=== PATIENT | female | born 1985 | race Caucasian/White ===

== ENCOUNTER 2016-09-07 18:34 | Emergency (ER) | payer OTHER ==
[~2016-09-07] VITALS: Ht 162.6 cm; Wt 54.0 kg
[2016-09-07] MEDS ORDERED: METH5TAB6 PO (18:44)
--- NOTE | 2016-09-07 19:02 | NUR ---
SBAR REPORT GIVEN TO ROYAL GUADARRAMA.
[2016-09-07 19:19] LABS: *BILIRUBIN,URIN NEGATIVE (NEGATIVE); *BLOOD, URINE NEGATIVE (NEGATIVE); *CLARITY,URINE CLEAR (CLEAR); *COLOR,URINE YELLOW (YELLOW); *KETONES,URINE TRACE (NEGATIVE); *PROTEIN,URINE NEGATIVE (NEGATIVE); LEUKOCYTE ESTERASE ,URINE 1+ (NEGATIVE); NITRITE, URINE NEGATIVE (NEGATIVE); UGLUCOSE NEGATIVE (NEGATIVE)
[2016-09-07 19:26] LABS: SQUAMOUS EPITHELIAL CELL,UR MODERATE /HPF (NONE SEEN)
[2016-09-07 19:28] LABS: BASOPHILS % (AUTO) 0.4 % (0.0-2.0); EOSINOPHILS # (AUTO) 0.2 K/uL (0.0-0.7); EOSINOPHILS % (AUTO) 2.8 % (0.0-7.0); HEMATOCRIT 42.9 % (37-47); LYMPHOCYTES # (AUTO) 1.5 K/UL (0.8-4.8); LYMPHOCYTES % (AUTO) 25.4 % (20.5-51.5); MEAN CORPUSCULAR HEMOGLOBIN 28.5 UUG (27.0-31.0); MEAN CORPUSCULAR HGB CONC 33 g/dL (32.0-37.0); MEAN CORPUSCULAR VOLUME 87.2 FL (81.0-99.0); MONOCYTES # (AUTO) 0.4 K/UL (0.1-1.30); MONOCYTES % (AUTO) 6.2 % (0.0-11.0); NEUTROPHILS % (AUTO) 65.2 % (38.5-71.5); PLATELET COUNT (AUTO) 252 K/UL (150-450); RED BLOOD CELL COUNT(AUTO) 4.92 MIL/UL (4.2-5.4); WHITE BLOOD COUNT (AUTO) 6.1 K/UL (4.0-11.2)
[2016-09-07 19:35] LABS: CREATININE 0.7 mg/dL (0.6-1.3); POTASSIUM 3.3 mmol/L (3.5-5.1)
[2016-09-07 19:41] LABS: BILIRUBIN,DIRECT 0.3 mg/dL (0.0-0.2); BILIRUBIN,TOTAL 1.6 mg/dL (0.2-1.0); TOTAL PROTEIN, SERUM 7.2 g/dL (6.4-8.2)
--- NOTE | 2016-09-07 20:14 | NUR ---
Radiology at bedside for US
--- NOTE | 2016-09-07 20:34 | NUR ---
Radiology completed US, preliminary results to [facility].
--- NOTE | 2016-09-07 20:47 | NUR ---
Patient discharged to home in stable conditon. Written and verbal after care instructions given. Patient verbalizes understanding of instructions. Copies of laboratory and radiology results provided to patient.
[2016-09-07 20:48] VITALS: BP 118/78
== END 2016-09-07 20:49 | disposition home or self-care (01) ==
LOC: ER 18:35
DX: R10.9 Unspecified abdominal pain (principal); R79.89 Other specified abnormal findings of blood chemistry; E05.90 Thyrotoxicosis, unspecified without thyrotoxic crisis or storm; Z79.899 Other long term (current) drug therapy
CPT/HCPCS: 36415; 76700; 83690; 84703; 85025; A4663

== ENCOUNTER 2018-09-07 23:23 | Emergency (ER) | payer OTHER ==
[~2018-09-07] VITALS: Ht 167.6 cm; Wt 56.7 kg
[~2018-09-07 23:23] MED LIST: METH5TAB6 PO
--- NOTE | 2018-09-07 23:40 | NUR ---
Patient ambulated with stable gait. A/Ox4. Patient came for c/o tongue pain that radiates down the left neck. Patient c/o having trouble swallowing but is able to speak clearly. Respiratory even and unlabored, no cough no sob. No GI/ distress noted.
[2018-09-08] MEDS ORDERED: ONDANSETRON 4 MG/2 ML VIAL IM ONE
[2018-09-08] MEDS ORDERED: HYDROMORPHONE 1 MG/1 ML DISP.SYRIN IM ONE
[2018-09-08] MEDS ORDERED: HYDROMORPHONE 1 MG/1 ML DISP.SYRIN ONE (00:03)
[2018-09-08] MEDS ORDERED: ONDANSETRON 4 MG/2 ML VIAL ONE (00:04)
--- NOTE | 2018-09-08 00:15 | NUR ---
Patient transported to CT in stable condition.
--- NOTE | 2018-09-08 00:33 | NUR ---
Patient back in froom from CT in stable condition.
[2018-09-08 01:43] VITALS: BP 132/81
--- NOTE | 2018-09-08 01:43 | NUR ---
Patient discharged to home in stable conditon. Written and verbal after care instructions given. Patient verbalizes understanding of instructions. Patient ambulated with stable gait.
== END 2018-09-08 01:44 | disposition home or self-care (01) ==
LOC: ER 23:23
DX: M54.2 Cervicalgia (principal); C02.9 Malignant neoplasm of tongue, unspecified; Z79.899 Other long term (current) drug therapy
CPT/HCPCS: 70450; 70490; 96372 ×2; 99284; J1170; J2405; A4663

== ENCOUNTER 2020-08-11 20:03 | Emergency (ER) | payer OTHER ==
[~2020-08-11] VITALS: Ht 165.1 cm; Wt 59.0 kg
[2020-08-11] MEDS ORDERED: IBUPROFEN 400 MG TABLET PO ONE (20:45)
[2020-08-11] MEDS ORDERED: OXYC-117 PO (20:47)
[2020-08-11] MEDS ORDERED: ONDA4TAB5 PO (20:47)
[2020-08-11] MEDS ORDERED: IBUP-1953 PO (20:47)
--- NOTE | 2020-08-11 20:54 | NUR ---
Patient discharged to home in stable condition. Written and verbal after care instructions given. Patient verbalizes understanding of instructions. Stressed follow up or return to ER for worsening s/s. VSS. Steady gait. All belongings with patient. Patient states that she will take ibuprofen at home - didnt want dose here.
[2020-08-11 21:12] VITALS: BP 115/74
== END 2020-08-11 20:54 | disposition home or self-care (01) ==
LOC: ER 20:03
DX: R51.9 Headache, unspecified (principal); Z85.810 Personal history of malignant neoplasm of tongue; E05.90 Thyrotoxicosis, unspecified without thyrotoxic crisis or storm
CPT/HCPCS: A4663

== ENCOUNTER 2020-09-14 22:13 | Emergency (ER) | payer OTHER ==
[~2020-09-14 22:13] MED LIST changes: +IBUP-1953 PO; +ONDA4TAB5 PO; +OXYC-117 PO
--- NOTE | 2020-09-14 23:02 | NUR ---
Patient not in waiting room lobby, or outside ED.
--- NOTE | 2020-09-14 23:13 | NUR ---
Patient not in waiting room lobby, or outside ED.
--- NOTE | 2020-09-14 23:25 | NUR ---
Patient left without being seen by ER physician.
== END 2020-09-14 23:26 | disposition left against medical advice (07) ==
LOC: ER 22:14
DX: Z53.21 Procedure and treatment not carried out due to patient leaving prior to being seen by health care provider (principal)